=== PATIENT | male | born 1950 | race Caucasian/White ===

== ENCOUNTER 2018-03-08 13:41 | Emergency (ER) | payer MEDICARE, MEDICAID ==
[~2018-03-08] VITALS: Ht 165.1 cm; Wt 52.0 kg
[~2018-03-08 13:41] MED LIST: ATOR40TA70 PO; DILT180C3 PO; DOCU-150 PO; LEVE500T19 PO; LISI-186 PO; WARF4TAB71 PO
[2018-03-08] MEDS ORDERED: ONDANSETRON HCL 4MG/2ML INJ IV STA (14:50)
[2018-03-08] MEDS ORDERED: SODIUM CHLORIDE 0.9% 1,000 ML IV ONE (14:50)
[2018-03-08 15:48] LABS: CHLORIDE 110 mEq/L (98-107)
[2018-03-08 15:51] LABS: INR 1.1; PARTIAL THROMBOPLASTIN TIME 28.4 sec (23.4-31.0); PROTHROMBIN TIME 11.4 sec (9.1-11.1)
[2018-03-08 15:54] LABS: BASOPHILS % 0.3 % (0.0-2.0); EOSINOPHILS % 0.5 % (0.0-5.0); HEMATOCRIT. 44.2 % (42.0-52.0); MEAN CORPUSCULAR HEMOGLOBIN 31.1 pg (28.0-32.0); MEAN CORPUSCULAR VOLUME 91.9 fL (80.0-94.0); MEAN PLATELET VOLUME 9.4 fl (7.4-10.4); MONOCYTES % 5.9 % (2.0-8.0); NEUTROPHILS % 84.3 % (40.0-76.0); PLATELET 181 x1000/uL (130-400); RED BLOOD CELL COUNT 4.81 mill/uL (4.7-6.1); RED CELL DISTRIBUTION WIDTH 13.8 % (11.6-14.6)
[2018-03-08 18:25] VITALS: BP 100/60
== END 2018-03-08 19:01 | disposition home or self-care (01) ==
LOC: ER 13:41
DX: E86.0 Dehydration (principal); I10 Essential (primary) hypertension; I48.91 Unspecified atrial fibrillation; R11.2 Nausea with vomiting, unspecified; Z86.73 Personal history of transient ischemic attack (TIA), and cerebral infarction without residual deficits; Z88.0 Allergy status to penicillin; Z79.899 Other long term (current) drug therapy
CPT/HCPCS: 36415; 71045; 80053; 83880; 84443; 84484; 85025; 85610; 85730; 93005; 96360; 99285; J7030

== ENCOUNTER 2018-08-08 14:59 | Inpatient (IN) | payer MEDICAID, OTHER ==
[~2018-08-08] VITALS: Ht 177.8 cm; Wt 63.5 kg
[2018-08-08] MEDS ORDERED: SODIUM CHLORIDE 0.9% 1,000 ML IV ONE (20:27)
[2018-08-08] MEDS ORDERED: ONDANSETRON HCL 4MG/2ML INJ IV STA (20:27)
[2018-08-08] MEDS ORDERED: KETOROLAC 30MG/ML VIAL IV ONE (20:30)
[2018-08-08 21:32] LABS: HEMATOCRIT. 44.9 % (42.0-52.0); MEAN CORPUSCULAR HEMOGLOBIN 30.6 pg (28.0-32.0); MEAN CORPUSCULAR VOLUME 91.6 fL (80.0-94.0); MEAN PLATELET VOLUME 9.4 fl (7.4-10.4); PLATELET 140 x1000/uL (130-400); RED CELL DISTRIBUTION WIDTH 13.8 % (11.6-14.6)
[2018-08-08 21:37] LABS: CHLORIDE 107 mEq/L (98-107)
[2018-08-08 21:38] LABS: INR 1.2; PROTHROMBIN TIME 11.7 sec (9.1-11.1)
[2018-08-08 22:03] LABS: PLATELET ESTIMATE NORMAL
[2018-08-08] MEDS ORDERED: VANCOMYCIN 1 G PREMIX 200 ML IV ONE (22:15)
[2018-08-08 23:02] LABS: CHLORIDE 112 mEq/L (98-107)
[2018-08-08 23:03] LABS: INR 1.3; PROTHROMBIN TIME 12.9 sec (9.1-11.1)
[2018-08-08] MEDS ORDERED: SODIUM CHLORIDE 0.9% 1,000 ML IV NR (23:26)
[2018-08-08 23:49] LABS: CLARITY URINE CLEAR (CLEAR); COLOR URINE DARK YELLOW (YELLOW); KETONES URINE NEGATIVE (NEGATIVE); LEUKOCYTE ESTERASE URINE NEGATIVE (NEGATIVE); NITRITE URINE NEGATIVE (NEGATIVE); OCCULT BLOOD URINE 1+ (NEGATIVE); PH URINE 5.5 (4.5-8.0); PROTEIN URINE 1+ (NEGATIVE)
[2018-08-09] MEDS ORDERED: IOHEXOL-300 100 ML BOTTLE ONE (02:48)
[2018-08-09] MEDS ORDERED: ACETAMINOPHEN 325MG TABLET PO PRN (08:15)
[2018-08-09] MEDS ORDERED: ONDANSETRON HCL 4MG/2ML INJ IV PRN (08:15)
[2018-08-09] MEDS ORDERED: POTASSIUM CHLORIDE 20MEQ TABLET SR PO NR (08:15)
[2018-08-09] MEDS ORDERED: DEXTROSE 50% WATER 50ML SYRINGE IV PRN (08:15)
[2018-08-09] MEDS ORDERED: INSULIN LISPRO 100 UNITS/ML SUBCUT SCH (08:20)
[2018-08-09] MEDS: SODIUM CHLORIDE 0.45% 1,000 ML IV SCH ×2 (09:51→21:43)
[2018-08-09] MEDS ORDERED: LACTULOSE 20G/30ML UDC PO PRN (11:15)
[2018-08-09] MEDS ORDERED: LACTULOSE 20G/30ML UDC PO NR (11:15)
[2018-08-09] MEDS: BLOOD SUGAR DIAGNOSTIC STRIP TEST SCH ×3 (13:00→20:14)
[2018-08-09] MEDS: INSULIN LISPRO 100 UNITS/ML SUBCUT SCH ×3 (13:20→20:14)
[2018-08-09] MEDS: MIDODRINE HCL 5MG TABLET PO SCH ×2 (13:41→17:00)
[2018-08-09 15:15] VITALS: BP 101/59
[2018-08-09] MEDS: DOCUSATE SODIUM 250MG CAPSULE PO SCH (16:30)
[2018-08-09 16:58] VITALS: BP 101/59
[2018-08-09 20:00] VITALS: BP 106/71
[2018-08-10] VITALS: BP 140/69
[2018-08-10 04:00] VITALS: BP 120/80
[2018-08-10] MEDS: BLOOD SUGAR DIAGNOSTIC STRIP TEST SCH ×3 (06:45→17:03)
[2018-08-10] MEDS: INSULIN LISPRO 100 UNITS/ML SUBCUT SCH ×3 (06:45→17:03)
[2018-08-10 08:00] VITALS: BP 115/82
[2018-08-10] MEDS: DOCUSATE SODIUM 250MG CAPSULE PO SCH (08:32)
[2018-08-10] MEDS: MIDODRINE HCL 5MG TABLET PO SCH ×3 (08:34→17:16)
[2018-08-10 10:01] LABS: BASOPHILS % 0.8 % (0.0-2.0); EOSINOPHILS % 4.4 % (0.0-5.0); HEMATOCRIT. 43.4 % (42.0-52.0); HEMOGLOBIN. 14.7 g/dL (14.0-18.0); LYMPHOCYTES % 27.6 % (20.0-50.0); MEAN CORPUSCULAR HEMOGLOBIN 30.7 pg (28.0-32.0); MEAN CORPUSCULAR VOLUME 90.3 fL (80.0-94.0); MEAN PLATELET VOLUME 9.5 fl (7.4-10.4); NEUTROPHILS % 56.2 % (40.0-76.0); PLATELET 134 x1000/uL (130-400)
[2018-08-10 10:15] LABS: CHLORIDE 107 mEq/L (98-107)
[2018-08-10] MEDS ORDERED: AMIODARONE HCL 200 MG TABLET PO SCH (11:00)
[2018-08-10 12:00] VITALS: BP 113/67
[2018-08-10] MEDS ORDERED: POTASSIUM CHLORIDE 20MEQ TABLET SR PO NR (13:15)
[2018-08-10] MEDS: SODIUM CHLORIDE 0.45% 1,000 ML IV SCH (13:29)
[2018-08-10 16:00] VITALS: BP 121/64
[2018-08-10 16:57] VITALS: BP 121/64
== END 2018-08-10 19:05 | disposition home or self-care (01) | DRG 247 ==
LOC: ER 14:59 → 8WST 22:25 → EDBEDREQ 22:30 → EDBEDREQSVC 22:30 → ENRESERV 08-09 13:55
PROVIDERS: ADMIT Internal Medicine; ATTEND Internal Medicine
DX: K56.41 Fecal impaction (principal); I69.354 Hemiplegia and hemiparesis following cerebral infarction affecting left non-dominant side; I48.91 Unspecified atrial fibrillation; E44.1 Mild protein-calorie malnutrition; D72.825 Bandemia; E11.9 Type 2 diabetes mellitus without complications; R00.1 Bradycardia, unspecified; F03.90 Unspecified dementia, unspecified severity, without behavioral disturbance, psychotic disturbance, mood disturbance, and anxiety; E78.5 Hyperlipidemia, unspecified; E87.6 Hypokalemia; J44.9 Chronic obstructive pulmonary disease, unspecified; I10 Essential (primary) hypertension; I25.10 Atherosclerotic heart disease of native coronary artery without angina pectoris; K76.0 Fatty (change of) liver, not elsewhere classified; Z79.01 Long term (current) use of anticoagulants; Z90.49 Acquired absence of other specified parts of digestive tract; Z88.0 Allergy status to penicillin; Z68.20 Body mass index [BMI] 20.0-20.9, adult
CPT/HCPCS: 36415; 71045; 74177; 80048; 82962; 83605; 84145; 84484; 93005; 96365; 96366; 96375; 97163; 99285; J1885; J2405; J3370; J7030; Q9967

== ENCOUNTER 2020-04-08 15:01 | Inpatient (IN) | payer MEDICARE, OTHER ==
[~2020-04-08] VITALS: Ht 165.1 cm; Wt 55.0 kg
[~2020-04-08 15:01] MED LIST changes: -DILT180C3 PO; -LISI-186 PO; -WARF4TAB71 PO
[2020-04-08] MEDS ORDERED: ONDANSETRON HCL 4MG/2ML INJ IV STA (15:31)
[2020-04-08] MEDS ORDERED: SODIUM CHLORIDE 0.9% 1000ML BAG (SEPSIS BOLUS) IV ONE (15:45)
[2020-04-08] MEDS ORDERED: CEFTRIAXONE 1 G PREMIX 50 ML IV ONE (15:45)
[2020-04-08] MEDS ORDERED: FLUO10CA26 MT (15:47)
[2020-04-08] MEDS ORDERED: DILT30TA38 PO (15:47)
[2020-04-08] MEDS ORDERED: AMIODARONE PO (15:47)
[2020-04-08 15:56] LABS: BG BASE EXCESS -13.8 mmol/L (-2.0-2.0); BG CARBOXYHEMOGLOBIN 0.3 % (0.5-1.5); BG DEOXYHEMOGLOBIN 2.4 % (0.0-5.0); BG HCO3 ACT 12.5 mmol/L (22.0-26.0); BG METHEMOGLOBIN 0.3 % (0.0-1.5); BG OXYGEN SATURATION 97.6 % (92.0-98.5); BG PCO2 31.4 mmHg (35.0-45.0); BG PH 7.218 (7.350-7.450); BG PO2 122.4 mmHg (75.0-100.0); BG SAMPLE SITE RIGHT RADIAL; BG TOTAL HEMOGLOBIN 17.3 g/dL (12.0-18.0); BG VENT MODE MASK - NRB
[2020-04-08 15:57] LABS: BASOPHILS % 0.1 % (0.0-2.0); EOSINOPHILS % 0.1 % (0.0-5.0); HEMATOCRIT. 50.7 % (42.0-52.0); HEMOGLOBIN. 16.5 g/dL (14.0-18.0); LYMPHOCYTES % 24.3 % (20.0-50.0); MEAN CORPUSCULAR HEMOGLOBIN 31.5 pg (28.0-32.0); MEAN CORPUSCULAR VOLUME 96.4 fL (80.0-94.0); MEAN PLATELET VOLUME 9.3 fl (7.4-10.4); MONOCYTES % 1.4 % (2.0-8.0); NEUTROPHILS % 74.1 % (40.0-76.0); PLATELET 190 x1000/uL (130-400); RED BLOOD CELL COUNT 5.26 mill/uL (4.7-6.1); RED CELL DISTRIBUTION WIDTH 14.8 % (11.6-14.6)
[2020-04-08 16:07] LABS: PROTHROMBIN TIME 10.4 sec (9.6-11.0)
[2020-04-08 16:09] LABS: CHLORIDE 108 mEq/L (98-107)
[2020-04-08] MEDS ORDERED: AZITHROMYCIN 500 MG in DEXT 5% WATER 250 ML IV SCH (17:45)
[2020-04-08 19:08] LABS: CLARITY URINE CLEAR (CLEAR); COLOR URINE YELLOW (YELLOW); KETONES URINE NEGATIVE (NEGATIVE); LEUKOCYTE ESTERASE URINE TRACE (NEGATIVE); NITRITE URINE POSITIVE (NEGATIVE); OCCULT BLOOD URINE TRACE (NEGATIVE); PROTEIN URINE NEGATIVE (NEGATIVE); SPECIFIC GRAVITY URINE 1.013 (1.005-1.030); UROBILINOGEN URINE 0.2 E.U./dL (0.2-1.0)
[2020-04-08 22:10] VITALS: BP 121/92
[2020-04-08] MEDS ORDERED: AMI2 PO (23:07)
[2020-04-09] VITALS: BP 121/66
[2020-04-09] MEDS ORDERED: DOCUSATE SODIUM 100MG CAPSULE PO PRN (00:30)
[2020-04-09 04:00] VITALS: BP 103/56
[2020-04-09 07:06] LABS: HEMATOCRIT. 43.2 % (42.0-52.0); HEMOGLOBIN. 14.5 g/dL (14.0-18.0); MEAN CORPUSCULAR HEMOGLOBIN 31.5 pg (28.0-32.0); MEAN CORPUSCULAR VOLUME 93.7 fL (80.0-94.0); MEAN PLATELET VOLUME 8.9 fl (7.4-10.4); PLATELET 148 x1000/uL (130-400); RED BLOOD CELL COUNT 4.61 mill/uL (4.7-6.1); RED CELL DISTRIBUTION WIDTH 14.7 % (11.6-14.6)
[2020-04-09 07:13] LABS: CHLORIDE 109 mEq/L (98-107)
[2020-04-09 07:20] LABS: LDL CHOLESTEROL 35 mg/dL (5-100)
[2020-04-09 07:22] LABS: HDL CHOLESTEROL 52 mg/dL (40-59)
[2020-04-09] MEDS ORDERED: ALBUTEROL 6.7GM HFA INHALER ORI SCH (08:00)
[2020-04-09] MEDS: FLUOXETINE HCL 10 MG CAPSULE PO SCH (08:27)
[2020-04-09] MEDS: DEXAMETHASONE 2MG TABLET PO SCH (08:28)
[2020-04-09] MEDS: LEVETIRACETAM 500MG/5ML CUP PO SCH ×2 (08:29→20:42)
[2020-04-09] MEDS: FAMOTIDINE 20MG TABLET PO SCH (08:29)
[2020-04-09] MEDS ORDERED: DILTIAZEM HCL 30MG TABLET PO SCH (09:00)
[2020-04-09] MEDS ORDERED: AMIODARONE HCL 200 MG TABLET PO SCH (09:00)
[2020-04-09] MEDS ORDERED: ENOXAPARIN 40MG/0.4ML SYR SUBCUT SCH (09:00)
[2020-04-09] MEDS ORDERED: AZITHROMYCIN 250 MG in DEXT 5% WATER 250 ML IV SCH (11:00)
[2020-04-09 12:00] VITALS: BP 92/53
[2020-04-09 16:00] VITALS: BP 97/60
[2020-04-09] MEDS ORDERED: CEFTRIAXONE 1,000 MG in DEXTROSE 5% WATER 50 ML IV SCH (16:00)
[2020-04-09 16:36] LABS: PLATELET ESTIMATE NORMAL
[2020-04-09] MEDS ORDERED: WARFARIN SODIUM 7.5MG TABLET PO ONE (17:00)
[2020-04-09] MEDS: DILTIAZEM HCL 30MG TABLET PO SCH (17:20)
[2020-04-09] MEDS: APIXABAN 2.5 MG TABLET PO SCH (17:33)
[2020-04-09] MEDS: METRONIDAZOLE 500 MG PREMIX 100 ML IV SCH (17:33)
[2020-04-09 20:00] VITALS: BP 98/66
[2020-04-09] MEDS: LEVOFLOXACIN 500MG PREMIX 100 ML IV SCH (20:42)
[2020-04-09] MEDS: IPRATROPIUM BROMIDE (0.02%) 0.5MG/2.5ML NEB HHN PRN (20:42)
[2020-04-09] MEDS: ACETYLCYSTEINE 100MG/ML 10% VIAL 4ML INH SCH (20:42)
[2020-04-09] MEDS: ATORVASTATIN CALCIUM 40MG TABLET PO SCH (20:43)
[2020-04-10] VITALS: BP 115/67
[2020-04-10] MEDS: IPRATROPIUM BROMIDE (0.02%) 0.5MG/2.5ML NEB HHN PRN ×3 (00:19→08:43)
[2020-04-10] MEDS: METRONIDAZOLE 500 MG PREMIX 100 ML IV SCH ×3 (02:33→18:19)
[2020-04-10] MEDS: ACETYLCYSTEINE 100MG/ML 10% VIAL 4ML INH SCH ×3 (03:25→17:16)
[2020-04-10 04:00] VITALS: BP 113/73
[2020-04-10] MEDS: DILTIAZEM HCL 30MG TABLET PO SCH ×4 (05:49→18:18)
[2020-04-10 08:00] VITALS: BP 109/74
[2020-04-10] MEDS: APIXABAN 2.5 MG TABLET PO SCH ×2 (09:42→18:17)
[2020-04-10] MEDS: FAMOTIDINE 20MG TABLET PO SCH (09:42)
[2020-04-10] MEDS: DEXAMETHASONE 2MG TABLET PO SCH (09:42)
[2020-04-10] MEDS: FLUOXETINE HCL 10 MG CAPSULE PO SCH (09:42)
[2020-04-10] MEDS: LEVETIRACETAM 500MG/5ML CUP PO SCH ×2 (09:43→21:06)
[2020-04-10 12:00] VITALS: BP 131/85
[2020-04-10 16:00] VITALS: BP 118/89
[2020-04-10 16:03] LABS: HEMATOCRIT. 43.4 % (42.0-52.0); HEMOGLOBIN. 14.6 g/dL (14.0-18.0); MEAN CORPUSCULAR HEMOGLOBIN 31.2 pg (28.0-32.0); MEAN CORPUSCULAR VOLUME 92.5 fL (80.0-94.0); PLATELET 147 x1000/uL (130-400); RED BLOOD CELL COUNT 4.69 mill/uL (4.7-6.1); RED CELL DISTRIBUTION WIDTH 14.4 % (11.6-14.6)
[2020-04-10 16:09] LABS: CHLORIDE 109 mEq/L (98-107)
[2020-04-10 16:10] LABS: PARTIAL THROMBOPLASTIN TIME 31.6 sec (23.4-31.0); PROTHROMBIN TIME 10.5 sec (9.6-11.0)
[2020-04-10 16:42] LABS: PLATELET ESTIMATE NORMAL
[2020-04-10 20:00] VITALS: BP 127/86
[2020-04-10] MEDS: ATORVASTATIN CALCIUM 40MG TABLET PO SCH (21:06)
[2020-04-10] MEDS: LEVOFLOXACIN 500MG PREMIX 100 ML IV SCH (21:06)
[2020-04-11] VITALS: BP 126/83
[2020-04-11] MEDS: DILTIAZEM HCL 30MG TABLET PO SCH ×4 (00:18→20:52)
[2020-04-11] MEDS: ACETYLCYSTEINE 100MG/ML 10% VIAL 4ML INH SCH ×2 (00:33→08:59)
[2020-04-11] MEDS: IPRATROPIUM BROMIDE (0.02%) 0.5MG/2.5ML NEB HHN PRN ×3 (00:33→13:09)
[2020-04-11] MEDS: METRONIDAZOLE 500 MG PREMIX 100 ML IV SCH ×3 (01:04→17:44)
[2020-04-11 04:00] VITALS: BP 123/82
[2020-04-11 05:38] LABS: HEMATOCRIT. 41.2 % (42.0-52.0); HEMOGLOBIN. 14.1 g/dL (14.0-18.0); MEAN CORPUSCULAR HEMOGLOBIN 31.3 pg (28.0-32.0); MEAN CORPUSCULAR VOLUME 91.5 fL (80.0-94.0); MEAN PLATELET VOLUME 9.2 fl (7.4-10.4); PLATELET 155 x1000/uL (130-400); RED CELL DISTRIBUTION WIDTH 14.2 % (11.6-14.6)
[2020-04-11 05:54] LABS: CHLORIDE 109 mEq/L (98-107)
[2020-04-11 08:00] VITALS: BP 144/88
[2020-04-11] MEDS: DEXAMETHASONE 2MG TABLET PO SCH (09:45)
[2020-04-11] MEDS: FLUOXETINE HCL 10 MG CAPSULE PO SCH (09:45)
[2020-04-11] MEDS: APIXABAN 2.5 MG TABLET PO SCH ×2 (09:45→17:44)
[2020-04-11] MEDS: LEVETIRACETAM 500MG/5ML CUP PO SCH ×2 (09:45→20:51)
[2020-04-11] MEDS: FAMOTIDINE 20MG TABLET PO SCH (09:45)
[2020-04-11 12:00] VITALS: BP 125/75
[2020-04-11 14:15] LABS: PLATELET ESTIMATE NORMAL
[2020-04-11 16:00] VITALS: BP 130/73
[2020-04-11 20:00] VITALS: BP 128/89
[2020-04-11] MEDS: ATORVASTATIN CALCIUM 40MG TABLET PO SCH (20:51)
[2020-04-11] MEDS: LEVOFLOXACIN 500MG PREMIX 100 ML IV SCH (20:51)
[2020-04-12] VITALS: BP 121/82
[2020-04-12] MEDS: METRONIDAZOLE 500 MG PREMIX 100 ML IV SCH ×3 (02:58→17:45)
[2020-04-12 04:00] VITALS: BP 134/78
[2020-04-12] MEDS: DILTIAZEM HCL 30MG TABLET PO SCH (06:00)
[2020-04-12] MEDS ORDERED: APIX2.5T PO (07:50)
[2020-04-12] MEDS ORDERED: LEVO500T2 MT (07:50)
[2020-04-12] MEDS ORDERED: METR500T MT (07:50)
[2020-04-12] MEDS ORDERED: LIP40 PO (07:50)
[2020-04-12 08:15] VITALS: BP 120/74
[2020-04-12] MEDS: FAMOTIDINE 20MG TABLET PO SCH (09:26)
[2020-04-12] MEDS: LEVETIRACETAM 500MG/5ML CUP PO SCH ×2 (09:26→20:24)
[2020-04-12] MEDS: APIXABAN 2.5 MG TABLET PO SCH ×2 (09:26→17:45)
[2020-04-12] MEDS: FLUOXETINE HCL 10 MG CAPSULE PO SCH (09:26)
[2020-04-12] MEDS: DEXAMETHASONE 2MG TABLET PO SCH (09:26)
[2020-04-12 12:00] VITALS: BP 136/77
[2020-04-12 16:00] VITALS: BP 137/76
[2020-04-12 20:00] VITALS: BP 148/78
[2020-04-12] MEDS: LEVOFLOXACIN 500MG PREMIX 100 ML IV SCH (20:24)
[2020-04-12] MEDS: ATORVASTATIN CALCIUM 40MG TABLET PO SCH (20:24)
[2020-04-13] VITALS: BP 132/71
[2020-04-13] MEDS: METRONIDAZOLE 500 MG PREMIX 100 ML IV SCH ×3 (02:57→17:35)
[2020-04-13 04:00] VITALS: BP 127/71
[2020-04-13 08:00] VITALS: BP 137/75
[2020-04-13] MEDS: LEVETIRACETAM 500MG/5ML CUP PO SCH ×2 (09:13→21:53)
[2020-04-13] MEDS: DEXAMETHASONE 2MG TABLET PO SCH (09:13)
[2020-04-13] MEDS: FLUOXETINE HCL 10 MG CAPSULE PO SCH (09:13)
[2020-04-13] MEDS: APIXABAN 2.5 MG TABLET PO SCH ×2 (09:14→17:35)
[2020-04-13] MEDS: FAMOTIDINE 20MG TABLET PO SCH (09:14)
[2020-04-13 12:00] VITALS: BP 132/66
[2020-04-13 16:00] VITALS: BP 127/74
[2020-04-13 20:00] VITALS: BP 134/68
[2020-04-13] MEDS: ATORVASTATIN CALCIUM 40MG TABLET PO SCH (21:53)
[2020-04-13] MEDS: LEVOFLOXACIN 500MG PREMIX 100 ML IV SCH (21:53)
[2020-04-14] VITALS: BP 148/80
[2020-04-14] MEDS: METRONIDAZOLE 500 MG PREMIX 100 ML IV SCH ×2 (02:00→10:00)
[2020-04-14 04:00] VITALS: BP 139/79
[2020-04-14 08:00] VITALS: BP 125/91
[2020-04-14] MEDS: LEVETIRACETAM 500MG/5ML CUP PO SCH (09:29)
[2020-04-14] MEDS: FLUOXETINE HCL 10 MG CAPSULE PO SCH (09:29)
[2020-04-14] MEDS: FAMOTIDINE 20MG TABLET PO SCH (09:29)
[2020-04-14] MEDS: DEXAMETHASONE 2MG TABLET PO SCH (09:29)
[2020-04-14] MEDS: APIXABAN 2.5 MG TABLET PO SCH (09:29)
[2020-04-14 12:00] VITALS: BP 113/79
[2020-04-14 13:37] VITALS: BP 113/79
== END 2020-04-14 17:10 | disposition home or self-care (01) | DRG 871 ==
LOC: ER 15:01 → 7EST 20:17 → EDBEDREQTM 20:22 → EDBEDREQ 20:22 → EDBEDREQSVC 20:22 → ENRESERV 20:32 → 5WST 04-09 18:49
PROVIDERS: ADMIT Internal Medicine; ATTEND Internal Medicine
DX: A41.9 Sepsis, unspecified organism (principal); J69.0 Pneumonitis due to inhalation of food and vomit; J96.01 Acute respiratory failure with hypoxia; E44.0 Moderate protein-calorie malnutrition; E87.2 Acidosis; N39.0 Urinary tract infection, site not specified; I48.20 Chronic atrial fibrillation, unspecified; I48.92 Unspecified atrial flutter; I69.354 Hemiplegia and hemiparesis following cerebral infarction affecting left non-dominant side; E11.9 Type 2 diabetes mellitus without complications; E78.5 Hyperlipidemia, unspecified; E87.8 Other disorders of electrolyte and fluid balance, not elsewhere classified; K80.20 Calculus of gallbladder without cholecystitis without obstruction; R65.20 Severe sepsis without septic shock; Z20.828 Contact with and (suspected) exposure to other viral communicable diseases; I10 Essential (primary) hypertension; Z79.01 Long term (current) use of anticoagulants; Z79.899 Other long term (current) drug therapy; Z68.20 Body mass index [BMI] 20.0-20.9, adult; I25.2 Old myocardial infarction; Z88.0 Allergy status to penicillin; R00.1 Bradycardia, unspecified; I48.0 Paroxysmal atrial fibrillation
CPT/HCPCS: 36415; 36600; 71045; 80048; 80053; 80061; 81003; 82375; 82728; 82805; 83605; 83615; 83735; 83880; 84145; 84484; 85025; 87635; 92610; 93005; 93306; 94640; 96365; 97162; 97166; 99291; J0456; J0696; J1650; J1956; J2405; J3490; J7030; J7060; J7608; J8540